=== PATIENT | female | born 1960 | race Caucasian/White ===

== ENCOUNTER → 2019-10-08 | Outpatient (CLI) | payer OTHER ==
--- NOTE | 2019-10-28 14:14 | SLEEPCENT ---
DATE: 10/08/2019 ORDERED BY: Antoinette Crowe Nocturnal polysomnography was performed for evaluation of sleep physiology. There was 7 hours and 53 minutes of data reviewed. There was 239 minutes of sleep identified. Sleep latency was very prolonged at 189 minutes. REM latency was likewise prolonged at 220.5 minutes. Sleep architecture showed an initial poor progression. There was one REM cycle late in the study. Overall sleep efficiency was 51%. The patient's electrocardiogram showed a sinus rhythm with an average heart rate of 60 beats per minute. EEG showed fairy normal waveforms for wake and sleep. There were 93 respiratory events identified of 10 seconds in duration or greater, for an apnea-hypopnea index of 23.3. The events were obstructive, not exclusive to sleep stage nor body posture. Arousals from respiratory events occurred 14.8 times per hour, and occasional oxygen desaturations below 90% were seen. Remaining measures of sleep physiology were fairly normal. IMPRESSION: Obstructive sleep apnea syndrome (G47.33). Apnea-hypopnea index 23.3. RECOMMENDATION: The patient should be encouraged to return to the sleep disorder center for pressure therapy. In the interim, alcohol and sedative avoidance should be practiced and caution exercised during the operation of motor vehicles. SHELBIED
== END ==
LOC: M SLEEP 20:00
PROVIDERS: ATTEND Nurse Practitioner Family
DX: G47.30 Sleep apnea, unspecified (principal)

== ENCOUNTER → 2019-12-18 | Outpatient (CLI) | payer OTHER ==
--- NOTE | 2019-12-20 13:07 | SLEEPCENT ---
DATE: 12/18/2019 ORDERED BY: PAM Jara Nocturnal polysomnography was performed for the titration of pressure therapy in this patient with obstructive sleep apnea syndrome with apnea-hypopnea index of 23.3. For testing a ResMed AirTouch F20 full face mask of medium size was used, 4 cm of water pressure were applied to the circuit, and the lights were extinguished. Eight hours and 4 minutes of data were reviewed. There were 376 minutes of sleep identified. Sleep latency was prolonged at 62.5 minutes. REM latency was prolonged at 147 minutes. Sleep architecture improved with optimal pressure therapy. There were three REM cycles noted. Overall sleep efficiency was 78.7%. The electrocardiogram showed a sinus rhythm throughout with an average heart rate of 70 beats per minute. EEG showed normal waveforms for wake and sleep. Respiratory events were fully palliated with CPAP at a pressure of +5 and remaining measures of sleep physiology were normal. IMPRESSION: Obstructive sleep apnea syndrome (G47.33). RECOMMENDATION: Nightly use of pressure therapy 5 cm of water. MTDD
== END ==
LOC: M SLEEP 20:00
PROVIDERS: ATTEND Physician Assistant
DX: G47.33 Obstructive sleep apnea (adult) (pediatric) (principal)